=== PATIENT | male | born 1940 | race Caucasian/White ===

== ENCOUNTER → 2017-01-07 | Day surgery (SDC) | payer MEDICARE, OTHER | LOC: MSO 08:11 | DX: Z12.11 Encounter for screening for malignant neoplasm of colon (principal); D12.3 Benign neoplasm of transverse colon; Z86.010 Personal history of colon polyps; Z80.0 Family history of malignant neoplasm of digestive organs; K57.30 Diverticulosis of large intestine without perforation or abscess without bleeding; I10 Essential (primary) hypertension | CPT/HCPCS: 00810; J7120 ==

== ENCOUNTER → 2017-06-17 | Day surgery (SDC) | payer MEDICARE, OTHER | LOC: MSO 07:02 | DX: K40.90 Unilateral inguinal hernia, without obstruction or gangrene, not specified as recurrent (principal); D17.6 Benign lipomatous neoplasm of spermatic cord; I10 Essential (primary) hypertension; Z79.82 Long term (current) use of aspirin | CPT/HCPCS: 00830; A4649; C1781; J0690; J2405; J3010; J7120 ==

== ENCOUNTER → 2017-12-11 | Outpatient (CLI) | payer MEDICARE, OTHER | LOC: RAD 12:00 | DX: M25.861 Other specified joint disorders, right knee (principal); M25.462 Effusion, left knee ==

== ENCOUNTER → 2020-07-18 | Outpatient (CLI) | payer MEDICARE, OTHER | LOC: RAD 12:43 | DX: M79.604 Pain in right leg (principal) ==

== ENCOUNTER → 2024-03-23 | Outpatient (CLI) | payer MEDICARE, OTHER | LOC: RAD 13:29 | DX: R05.9 Cough, unspecified (principal) ==

== ENCOUNTER → 2024-12-02 | Outpatient (CLI) | payer MEDICARE, OTHER | LOC: VAS 09:32 | DX: R60.0 Localized edema (principal) ==

== ENCOUNTER → 2024-12-21 | Outpatient (CLI) | payer MEDICARE, OTHER | LOC: RAD 10:11 | DX: R05.1 Acute cough (principal) ==